=== PATIENT | male | born 1960 | race Caucasian/White ===

== ENCOUNTER → 2024-07-03 | Outpatient (CLI) | payer OTHER, SELFPAY ==
--- NOTE | 2024-07-03 07:15 | MRI_ITS ---
STUDY: MRI LEFT SHOULDER REASON FOR EXAM: Male, 63 years old. Pain. Evaluate for rotator cuff tear. TECHNIQUE: Standardized fat and water weighted pulse sequences were obtained in all 3 orthogonal planes. COMPARISON: Left shoulder x-rays dated May 11, 2024 FINDINGS: Mild supraspinatus and infraspinatus tendinosis with articular surface fraying and no evidence of partial thickness or full thickness tears (coronal series 5 images 7-15). Subscapularis tendinosis with thickening and increased signal intensity without a partial-thickness or full-thickness tear (axial series 3 images 10-15). Normal teres minor tendon. Normal supraspinatus muscle. Normal infraspinatus muscle. Normal subscapularis muscle. Normal teres minor muscle. Mild thinning of the articular cartilage of the glenohumeral joint with a moderate-sized glenohumeral joint effusion (axial series 7 is 8-17). Normal humeral head and visualized proximal humerus. Normal biceps labral complex. Normal intracapsular long biceps tendon. Normal labrum. Normal capsulo- ligamentous complex. Normal rotator interval. AC joint effusion with AC joint hypertrophy which results in narrowing of the subacromial space (coronal series 5 images 7-12). There is a Type II morphology (curved), with a neutral orientation. There is no subacromial-subdeltoid bursal fluid. Normal visualized coracohumeral and coracoacromial ligaments. Normal quadrilateral space. Normal axillary space. Normal deltoid muscle. Normal trapezius muscle. MRI/Upper Ext Joint Only(Routine) IMPRESSION: Supraspinatus, infraspinatus and subscapularis tendinosis. No partial thickness or full thickness tear. Mild arthrosis of the glenohumeral joint. AC joint effusion with AC joint hypertrophy which results in narrowing of the subacromial space. Moderate-sized glenohumeral joint effusion. Electronically Signed: José Luis Mota MD at 9:45 EDT ,
== END | disposition home or self-care (01) ==
LOC: MRI 07:00
PROVIDERS: Referring Provider Orthopaedic Surgery Sports Medicine; Visit Provider Orthopaedic Surgery Sports Medicine
DX: M25.512 Pain in left shoulder (principal)
CPT/HCPCS: 73221

== ENCOUNTER → 2024-07-28 | Outpatient (CLI) | payer OTHER, SELFPAY ==
--- NOTE | 2024-07-28 14:00 | NEURO_ITS ---
NCS and/or EMG Patient Report Ordering Doctor: Flako Colón DATE OF SERVICE: 07/28/24 José Luis presents for electrodiagnostic testing of the left upper limb. He reports left shoulder pain and numbness for the past 3 months. Electrodiagnostic findings: Left median motor nerve demonstrates prolonged latency with normal amplitude and reduced conduction velocity. Left ulnar motor response is within normal limits. Prolonged left median sensory latency at the wrist. Needle EMG testing was performed the left upper limb. All muscles tested showed no evidence of denervation with normal motor unit action potentials. Electrodiagnostic impression: This is an abnormal study in the left upper limb 1. 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 This consistent with mild left carpal tunnel syndrome. 2. There is no electrodiagnostic evidence for cervical radiculopathy or brachia l plexopathy. Multi Select Codes Neurology Neurology Interp Codes: 10011-30 Musc test done w/n test comp (interp) and 05669-63 Nrv cndj tst 5-6 studies (interp)
== END | disposition home or self-care (01) ==
PROVIDERS: PCP Internal Medicine; Referring Provider Orthopaedic Surgery Sports Medicine; Visit Provider Orthopaedic Surgery Sports Medicine
DX: M67.814 Other specified disorders of tendon, left shoulder (principal); M25.812 Other specified joint disorders, left shoulder
CPT/HCPCS: 95886; 95909

== ENCOUNTER 2024-09-10 10:00 | Outpatient (RCR) | payer OTHER, SELFPAY ==
--- NOTE | 2024-08-18 10:12 | HP.PTEVAL ---
Patient's Visit Information Visit Information Visit Information: OWEN TOMLIN Jr. is a 63 year old M referred to Physical Therapy by Dr. Flako Colón MD with a diagnosis of Tendinosis of L shoulder. Date of Evaluation: 08/18/24 Physical Therapist: Gorge Chow, PT, ATC Visit Plan Frequency: 2x /Week Duration: 3 Weeks Plan: L shoulder rotator cuff strengthening and mobility, core strengthening, scapular stabilization Subjective Subjective: Pt reports he started having L shoulder pain and feeling numbness and tingling going down his L arm while at work back in March. Pt reports the pain will sometimes travel up the L side of his neck, L arm is numb and tingly when he first wakes up. States he does a lot of UE lifting and pulling at work, thinks he started having pain due to overuse and repetitive motions. Pt reports weakness in his L shoulder and has difficulties lifting it over his head, getting dressed, and showering. States he has to use his R arm to lift his L arm to get it above his head. Pt reports he's R hand dominant. Pt reports he takes ibuoprophen and rest will help to relieve his pain. Pt reports he is unable to ride his motorcycle due to his pain. X-ray showed degenerative changes in cervical spine and MRI showed no significant findings. Pt reports the pain has no effect on his sleep. Pt reports his pain is 2/10 at rest and is a 5/10 at its worst. Pain L shoulder: Pain Intensity (Out of 10): 2 Pain Intensity Range: 5 Objective Objective: NEURO: hyposensitive to light touch on L arm; DTR biceps 1/3 bilaterally ROM: R shoulder flex= 165 deg, abd= 148 deg, ER= 90 deg, IR= ; L shoulder flex= 55 deg, abd= 40 deg, ER= 65 deg, IR= max limited compared to R side MMT: R shoulder flex= 13, abd= 13, ER= 21 , IR= 25, ; L shoulder flex= 6 , abd= 4, ER= 4, IR= 8 #F Repeated movements: RPIS 10x2 No sig effect, RRIS 10x2 Palpation: Pt is very sore throughout the supraspinatus region Balance/Special Test Scores Quick DASH Score: 52.2725 Goals Goal 1:: Pt will increase L shoulder ROM to within 90% of R shoulder to aid with overhead activities. Goal Time Frame: 2-4 Weeks Goal 2:: Pt will increase L shoulder strength to within 90% of R shoulder to aid with work tolerance. Goal Time Frame: 2-4 Weeks Goal 3:: Pt will decrease pain by 50% to aid with getting dressed. Goal Time Frame: 2-4 Weeks Rehabilitation Potential Physical Therapy Diagnosis: Decreased L shoulder strength and ROM Rehabilitation Potential: Good Anticipated Interventions Patient/Client Instruction: Educate patient on: Plan of Care Therapeutic Exercise to Include: Strength training, Body mechanics, Flexibilty training and Dynamic Lumbar Stabilization For the Purpose of:: To decrease pain, To increase ROM, To improve muscle performance and motor function and To improve ability to perform ADL's Text: Thank you for the opportunity to evaluate your patient. For Medicare and Medicare HMO plans, please review the plan of care and approve it. It will need to be FAXED BACK to us at [phone] for Medicare purposes. For Medicare only, by signing this I certify the plan of care. Please let me know if there are questions or concerns regarding this plan of care. Physician Signature: Date:
--- NOTE | 2024-09-10 10:37 | HP.PTDCSUM ---
Discharge Summary D/C summary: It has been my pleasure to treat OWEN TOMLIN Jr. referred by Dr. Flako Colón MD, with the diagnosis of Tendinosis of L shoulder for a total of 7 visit(s). Discharge Date: Please see the following information for a summary of their discharge status. Subjective Subjective: Pt reports he does notice some improvements. Pain L shoulder: Pain Intensity (Out of 10): 2 Overall Improvement % Improvement: 20 Objective Objective/Function: L shoulder pain 2/10, increases to 3/10 at worst L shoulder ROM: flex= 40, abd= 30, ER= 20, IR= moderately limited L shoulder MMT: flex= 7, abd= 10, ER= 7, IR= 12 #F Pt has made minimal improvements. Still lacks gross ROM and strength. Goals Goal 1:: Pt will increase L shoulder ROM to within 90% of R shoulder to aid with overhead activities. Goal 2:: Pt will increase L shoulder strength to within 90% of R shoulder to aid with work tolerance. Goal 3:: Pt will decrease pain by 50% to aid with getting dressed. Goal Progress: Progressing Plan Plan: Discontinue, return to doctor. D/C Information d/c sentence: If there are questions or concerns regarding this patient's physical therapy, please feel free to call me at [phone]. Thank you for the referral of this patient. Sincerely, Gorge Chow, PT, ATC Balance/Gait/Functional tests Balance/Special Test Scores Quick DASH Score: 52.2725 Improvement % Improvement: 20
== END 2024-09-10 10:44 | disposition home or self-care (01) ==
LOC: PT 10:00
PROVIDERS: PCP Internal Medicine; Referring Provider Orthopaedic Surgery Sports Medicine; Visit Provider Orthopaedic Surgery Sports Medicine
DX: M67.814 Other specified disorders of tendon, left shoulder (principal); M25.812 Other specified joint disorders, left shoulder
CPT/HCPCS: 97110; 97161; 97530